=== PATIENT | female | born 1990 | race Caucasian/White ===

== ENCOUNTER 2019-01-04 08:19 | Inpatient (IN) | payer OTHER ==
[2019-01-04] MEDS ORDERED: BUPIVACAINE 0.25% (MPF) 30 ML INJ (10:28)
[2019-01-04] MEDS ORDERED: HYDROmorphONE 1 MG/5 ML IV SYRINGE IV ×9 (10:30→12:30)
[2019-01-04] MEDS ORDERED: LIDOCAINE 1% (MDV) 20 ML INJ (10:50)
[2019-01-04] MEDS ORDERED: PROPOFOL 20 ML (10:50)
[2019-01-04] MEDS ORDERED: MIDAZOLAM 1 MG/ML 2 ML INJ (10:50)
[2019-01-04] MEDS ORDERED: ROPIVACAINE 0.5 % 30 ML VIAL (11:05)
[2019-01-04] MEDS ORDERED: CEFAZOLIN 1 GM INJ (11:12)
[2019-01-04] MEDS ORDERED: ONDANSETRON 4 MG INJ (11:17)
[2019-01-04] MEDS ORDERED: KETOROLAC 30 MG INJ (11:17)
[2019-01-04] MEDS: POLYMYXIN/BACITRACIN 1L IRRIG IRR (11:41)
[2019-01-04] MEDS ORDERED: FENTAnyl 50 MCG/ML VIAL IV ×5 (12:30)
[2019-01-04] MEDS ORDERED: KETOROLAC 15 MG INJ IV (12:30)
[2019-01-04] MEDS: HYDROCODONE/APAP (5/325) TAB PO (13:21)
[2019-01-04] MEDS: HYDROmorphONE 0.5 MG/0.5 ML SYG IV ×3 (15:11→22:48)
[2019-01-04] MEDS: HYDROCODONE/APAP (10/325) TAB PO (15:11)
[2019-01-04] MEDS: SOD CHLORIDE 0.9% 1,000 ML IV ×3 (17:30→19:20)
[2019-01-05] MEDS: HYDROCODONE/APAP (5/325) TAB PO ×3 (02:24→21:34)
[2019-01-05 06:30] LABS: ADD MAN DIFF? NO
[2019-01-05 06:38] LABS: BASOPHILS % 0.3 % (0.0-2.0); EOSINOPHILS # 0.1 10^3/ul (0.0-0.5); EOSINOPHILS % 0.9 % (0.0-7.0); HEMATOCRIT 36.8 % (37.0-47.0); HEMOGLOBIN 11.8 g/dl (12.0-16.0); LYMPHOCYTES # 1.9 10^3/ul (0.8-2.9); LYMPHOCYTES % 16.3 % (15.0-51.0); MEAN CORPUSCULAR HEMOGLOBIN 26.9 pg (29.0-33.0); MEAN CORPUSCULAR HGB CONC 32.1 g/dl (32.0-37.0); MEAN PLATELET VOLUME 9.9 fl (7.4-10.4); MONOCYTE # 0.7 10^3/ul (0.3-0.9); MONOCYTES % 5.8 % (0.0-11.0); NEUTROPHIL # 8.9 10^3/ul (1.6-7.5); NEUTROPHILS % 75.7 % (39.0-77.0); PLATELET COUNT 235 10^3/UL (140-415); RED BLOOD COUNT 4.38 10^6/ul (4.20-5.40); RED CELL DISTRIBUTION WIDTH 13.6 % (11.5-14.5)
[2019-01-05 06:38] LABS: WHITE BLOOD COUNT 11.8 10^3/ul (4.8-10.8)
[2019-01-05] MEDS: SOD CHLORIDE 0.9% 1,000 ML IV ×3 (06:43→21:38)
[2019-01-05 06:58] LABS: ANION GAP 6 (5-13); BLOOD UREA NITROGEN 17 mg/dl (7-20); CALCIUM 8.5 mg/dl (8.4-10.2); CARBON DIOXIDE 25 mmol/L (21-31); CHLORIDE 105 mmol/L (97-110); CREATININE 0.67 mg/dl (0.44-1.00); Estimated GFR > 60 mL/min (>60); GLUCOSE 86 mg/dl (70-220); SODIUM 136 mmol/L (135-144)
[2019-01-05] MEDS: HYDROmorphONE 0.5 MG/0.5 ML SYG IV ×2 (11:41→17:47)
[2019-01-06] MEDS: HYDROCODONE/APAP (5/325) TAB PO ×3 (05:42→19:58)
[2019-01-06 06:17] LABS: ADD MAN DIFF? NO
[2019-01-06 06:25] LABS: BASOPHILS % 0.4 % (0.0-2.0); EOSINOPHILS # 0.3 10^3/ul (0.0-0.5); EOSINOPHILS % 2.7 % (0.0-7.0); HEMATOCRIT 36.2 % (37.0-47.0); HEMOGLOBIN 11.6 g/dl (12.0-16.0); LYMPHOCYTES # 2.6 10^3/ul (0.8-2.9); LYMPHOCYTES % 27.8 % (15.0-51.0); MEAN CORPUSCULAR VOLUME 84.4 fl (82.0-101.0); MEAN PLATELET VOLUME 9.9 fl (7.4-10.4); MONOCYTE # 0.7 10^3/ul (0.3-0.9); MONOCYTES % 7.7 % (0.0-11.0); NEUTROPHIL # 5.5 10^3/ul (1.6-7.5); NEUTROPHILS % 60.2 % (39.0-77.0); PLATELET COUNT 223 10^3/UL (140-415); RED BLOOD COUNT 4.29 10^6/ul (4.20-5.40); RED CELL DISTRIBUTION WIDTH 13.6 % (11.5-14.5)
[2019-01-06 06:25] LABS: WHITE BLOOD COUNT 9.2 10^3/ul (4.8-10.8)
[2019-01-06 06:51] LABS: ANION GAP 7 (5-13); BLOOD UREA NITROGEN 13 mg/dl (7-20); CALCIUM 8.5 mg/dl (8.4-10.2); CARBON DIOXIDE 25 mmol/L (21-31); CHLORIDE 105 mmol/L (97-110); CREATININE 0.63 mg/dl (0.44-1.00); Estimated GFR > 60 mL/min (>60); GLUCOSE 91 mg/dl (70-220); POTASSIUM 3.9 mmol/L (3.5-5.1); SODIUM 137 mmol/L (135-144)
[2019-01-06] MEDS: SOD CHLORIDE 0.9% 1,000 ML IV ×3 (09:27→22:50)
[2019-01-06] MEDS: HYDROmorphONE 0.5 MG/0.5 ML SYG IV (09:27)
[2019-01-06] MEDS: MAGNESIUM HYDROXIDE 30ML CUP PO (12:32)
[2019-01-06] MEDS: KETOROLAC 30 MG INJ IV (16:56)
[2019-01-06] MEDS ORDERED: NA PHOSPHATE/BIPHOS 133 ML ENEMA PR (17:30)
[2019-01-06] MEDS: BISACODYL 10 MG SUPP PR (19:50)
[2019-01-07] MEDS: SOD CHLORIDE 0.9% 1,000 ML IV ×3 (02:16→15:51)
[2019-01-07] MEDS: KETOROLAC 30 MG INJ IV (02:26)
[2019-01-07] MEDS: HYDROCODONE/APAP (5/325) TAB PO ×2 (08:59→21:10)
[2019-01-07 12:22] LABS: ADD MAN DIFF? NO
[2019-01-07 12:30] LABS: WHITE BLOOD COUNT 9.3 10^3/ul (4.8-10.8)
[2019-01-07 12:30] LABS: BASOPHILS % 0.4 % (0.0-2.0); EOSINOPHILS # 0.2 10^3/ul (0.0-0.5); HEMATOCRIT 36.3 % (37.0-47.0); HEMOGLOBIN 11.7 g/dl (12.0-16.0); LYMPHOCYTES # 2.7 10^3/ul (0.8-2.9); LYMPHOCYTES % 29.5 % (15.0-51.0); MEAN CORPUSCULAR HEMOGLOBIN 27.2 pg (29.0-33.0); MEAN CORPUSCULAR HGB CONC 32.2 g/dl (32.0-37.0); MEAN CORPUSCULAR VOLUME 84.4 fl (82.0-101.0); MEAN PLATELET VOLUME 9.6 fl (7.4-10.4); MONOCYTE # 0.6 10^3/ul (0.3-0.9); MONOCYTES % 5.9 % (0.0-11.0); NEUTROPHIL # 5.6 10^3/ul (1.6-7.5); NEUTROPHILS % 60.8 % (39.0-77.0); PLATELET COUNT 228 10^3/UL (140-415); RED CELL DISTRIBUTION WIDTH 13.2 % (11.5-14.5)
[2019-01-07 12:51] LABS: ANION GAP 5 (5-13); BLOOD UREA NITROGEN 15 mg/dl (7-20); CALCIUM 8.5 mg/dl (8.4-10.2); CARBON DIOXIDE 26 mmol/L (21-31); CHLORIDE 106 mmol/L (97-110); CREATININE 0.66 mg/dl (0.44-1.00); Estimated GFR > 60 mL/min (>60); GLUCOSE 87 mg/dl (70-220); POTASSIUM 4.2 mmol/L (3.5-5.1); SODIUM 137 mmol/L (135-144)
[2019-01-08] MEDS: CEFAZOLIN 2 GM/50 ML (PMX) 50 ML IVPB (00:12)
[2019-01-08] MEDS: HYDROCODONE/APAP (5/325) TAB PO ×2 (03:04→08:52)
[2019-01-08 05:21] LABS: ADD MAN DIFF? NO
[2019-01-08 05:30] LABS: BASOPHILS % 0.3 % (0.0-2.0); EOSINOPHILS # 0.3 10^3/ul (0.0-0.5); EOSINOPHILS % 2.7 % (0.0-7.0); HEMATOCRIT 34.7 % (37.0-47.0); HEMOGLOBIN 11.4 g/dl (12.0-16.0); LYMPHOCYTES # 2.5 10^3/ul (0.8-2.9); LYMPHOCYTES % 24.8 % (15.0-51.0); MEAN CORPUSCULAR HEMOGLOBIN 27.3 pg (29.0-33.0); MEAN CORPUSCULAR HGB CONC 32.9 g/dl (32.0-37.0); MEAN CORPUSCULAR VOLUME 83.2 fl (82.0-101.0); MEAN PLATELET VOLUME 9.8 fl (7.4-10.4); MONOCYTE # 0.6 10^3/ul (0.3-0.9); MONOCYTES % 6.4 % (0.0-11.0); NEUTROPHIL # 6.4 10^3/ul (1.6-7.5); NEUTROPHILS % 64.7 % (39.0-77.0); PLATELET COUNT 238 10^3/UL (140-415); RED BLOOD COUNT 4.17 10^6/ul (4.20-5.40); RED CELL DISTRIBUTION WIDTH 13.4 % (11.5-14.5)
[2019-01-08 05:30] LABS: WHITE BLOOD COUNT 9.9 10^3/ul (4.8-10.8)
[2019-01-08 05:57] LABS: ANION GAP 9 (5-13); BLOOD UREA NITROGEN 14 mg/dl (7-20); CALCIUM 8.6 mg/dl (8.4-10.2); CARBON DIOXIDE 23 mmol/L (21-31); CHLORIDE 105 mmol/L (97-110); CREATININE 0.71 mg/dl (0.44-1.00); Estimated GFR > 60 mL/min (>60); GLUCOSE 86 mg/dl (70-220); POTASSIUM 3.9 mmol/L (3.5-5.1); SODIUM 137 mmol/L (135-144)
[2019-01-08] MEDS: SOD CHLORIDE 0.9% 1,000 ML IV (06:04)
== END 2019-01-08 15:01 | disposition home or self-care (01) | DRG 352 ==
LOC: SDS 08:19 → REC 17:00 → 2NE 18:00
PROC: 0YU50JZ Supplement Right Inguinal Region with Synthetic Substitute, Open Approach (ICD-10-PCS; principal; 2019-01-04 10:30)
DX: K40.30 Unilateral inguinal hernia, with obstruction, without gangrene, not specified as recurrent (principal); R53.1 Weakness; R11.0 Nausea
CPT/HCPCS: 70551; 80048; 84702; 84703; 85025